=== PATIENT | female | born 1945 | race Caucasian/White ===

== ENCOUNTER → 2016-08-15 | Day surgery (SDC) | payer BC ==
[~2016-08-15] MED LIST: ACETAMINOPHEN 1000 MG/100 ML VIAL IV ONE; BACITRACIN IM FOR SOLN 50,000 UNIT VIAL ONE; BUPIVACAINE/EPINEPHRINE 0.25% 50 ML VIAL ONE; GENTAMICIN SULFATE 80 MG/2 ML VIAL ONE; KETOROLAC TROMETHAMINE 30 MG/ML (IVP) VIAL ONE; LACTATED RINGER'S 1000 ML INJ 1,000 ML ONE; LIDOCAINE 1%/EPINEPHrine 1:100,000 SOLN 20 ML VIAL ONE; MEPERIDINE HCL 25 MG/ML VIAL ONE; MIDAZOLAM HCL 2 MG/2 ML VIAL ONE; ONDANSETRON HCL 4 MG/2 ML VIAL IV PUSH ONE; PROPOFOL 200 MG/20 ML AMP IV ONE; SODIUM CHLORIDE 0.9% 20 ML VIAL ONE; SODIUM CHLORIDE 0.9% INJ 100 ML IV ONE; VANCOMYCIN 500 MG VIAL ONE; ceFAZolin INJ 1,000 MG VIAL ONE
--- NOTE | 2016-08-15 13:40 | TN ---
cc: MARTY BUCIO M.D. DATE OF SURGERY 08/15/2016 PREOPERATIVE DIAGNOSIS Status post mastectomy, left. PROCEDURE First stage tissue expansion placement reconstruction with acellular dermal matrix (AlloDerm)and the tissue bariatric coordinator Niles Artoura filled to 420 cc out of 470. SURGEON Marty Bucio MD ANESTHESIA LMA general. Also utilized a total of 60 cc of 1% lidocaine with epinephrine. ESTIMATED BLOOD LOSS Minimal. COMPLICATIONS None. DRAINS Two YUKI drains, one 10-mm and the other 7 mm. PROCEDURE She was properly consented, marked, properly anesthetized. The skin was sterilized with Betadine solution and sterile draping applied. Through the previous mastectomy incision the scar was removed. The retroperitoneal plane pocket was released, was created and the inferomedial fibers were released from the pectoris major muscle. Anchoring of the 6 x 16 AlloDerm was done utilizing 2-0 Monocryl suture in a locking continuous fashion. As the Artoura tissue bariatric coordinator was introduced, the full pocket was closed utilizing a 2-0 Monocryl suture from the ADM to the inframammary fold internally. Tissue bariatric coordinator was expanded with the air up to 420 cc. The wound was closed after bringing the drains through a separate stab wound and finally closed the wounds in multiple 2-0 Monocryl suture layers, Jimmie's fascia, dermis and subcu. A Dermabond Prineo was utilized in order to cover the incision. The drains were covered with Biopatch and Tegaderm fluffs and tape was applied thereafter. Overall the patient tolerated the procedure well. She was awakened, extubated in the upper room and transferred back to the postanesthesia care unit in stable condition. There was no complication appreciated. The patient tolerated the procedure fairly well. MD LORENZO Nath/JULIANE /1:24 PM /1:30 PM KAYE
== END | disposition home or self-care (01) ==
LOC: ESDC 09:09
PROVIDERS: ATTEND Plastic Surgery
DX: Z85.3 Personal history of malignant neoplasm of breast (principal); Z90.12 Acquired absence of left breast and nipple
CPT/HCPCS: 00402; 15777; 19357; C1789; J0131; J0690; J1580; J1885; J2175; J2250; J2405; J3010; J3370; J7120; Q4116